=== PATIENT | female | born 1940 | race Caucasian/White ===

== ENCOUNTER → 2023-07-18 08:39 | Outpatient (BNVA) | payer MEDICARE, SELFPAY | PROVIDERS: PCP Internal Medicine; Referring Provider Internal Medicine; Visit Provider Physician Assistant Surgical | DX: J43.9 Emphysema, unspecified (principal); Z79.899 Other long term (current) drug therapy; I27.20 Pulmonary hypertension, unspecified; J96.91 Respiratory failure, unspecified with hypoxia | CPT/HCPCS: 99214 ==